=== PATIENT | male | born 1965 ===

== ENCOUNTER 2023-10-29 06:38 | Emergency (ER) | payer OTHER ==
[~2023-10-29] VITALS: Ht 182.9 cm; Wt 84.1 kg
[2023-10-29 07:03] VITALS: BP 161/99; PULSE 88; RESP 16; TEMP 99
[2023-10-29] MEDS ORDERED: KETOROLAC TROMETHAMINE 60 MG/2 ML VIAL IM ONE (08:15)
[2023-10-29] MEDS ORDERED: POVIDONE-IODINE 10% 120 ML SOLUTION TP ONE (10:30)
[2023-10-29] MEDS ORDERED: IBUP-1492 PO (11:19)
== END 2023-10-29 12:18 | disposition home or self-care (01) ==
LOC: EMS 06:38
DX: M25.562 Pain in left knee (principal); I10 Essential (primary) hypertension
CPT/HCPCS: 99283; 29505; 73562; 96372; J1885